=== PATIENT | female | born 1970 | race American Indian/Alaskan Native ===

== ENCOUNTER 2017-06-04 19:37 | Emergency (ER) | payer SELFPAY ==
[2017-06-04] MEDS ORDERED: ZOFRAN ODT PO ONE (20:06)
[2017-06-04] MEDS ORDERED: PERCOCET 5/325 PO ONE (20:06)
--- NOTE | 2017-06-04 20:07 | Emergency Department Report ---
Chief Complaint: Abdominal Pain Stated Complaint: ABDOMINAL PAIN,HEADACHE - HPI History of Present Illness: This Is a healthy 46-year-old female presents with left lower quadrant pain for 2 months. She also has had dark vaginal discharge. - Exam Vital Signs: Vital Signs 06/04/17 19:49 Temperature 98.7 F Pulse Rate 100 H Respiratory 18 Rate Blood Pressure 138/84 [Left] O2 Sat by Pulse 98 Oximetry MSE screening note: Focused history and physical exam performed. Due to findings the following was ordered: ED Disposition for MSE Condition: Stable Instructions: Abdominal Pain (ED)
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
[2017-06-04 20:21] LABS: Basophils % (Auto) 0.7 % (0.0-1.8); Eosinophils % (Auto) 0.2 % (0.0-4.3); Hemoglobin 7.4 gm/dl (10.1-14.3); Lymphocytes # (Auto) 0.6 K/mm3 (1.2-5.4); Lymphocytes % (Auto) 9.8 % (13.4-35.0); Mean Corpuscular HGB Conc 29 % (30-34); Monocytes # (Auto) 0.8 K/mm3 (0.0-0.8); Monocytes % (Auto) 12.1 % (0.0-7.3); Platelet Count 150 K/mm3 (140-440); Red Blood Count 3.82 M/mm3 (3.65-5.03)
[2017-06-04 20:23] LABS: Mean Corpuscular Hemoglobin 19 pg (28-32); Mean Corpuscular Volume 65 fl (79-97); Red Cell Distribution Width 24.1 % (13.2-15.2)
[2017-06-04 20:41] LABS: BUN/Creatinine Ratio 8; Blood Urea Nitrogen 5 mg/dL (7-17); Calcium 8.4 mg/dL (8.4-10.2); Hemolysis Index 2
--- NOTE | 2017-06-04 21:39 | Cat Scan Report ---
FINAL REPORT PROCEDURE: CT ABDOMEN PELVIS WO CON TECHNIQUE: Computerized axial tomography of the abdomen and pelvis was performed without intravenous contrast. This study is performed without intravascular contrast material and its sensitivity for abdominal and pelvic pathology, including neoplasms, inflammation, abscess, free fluid, thrombosis, arterial dissection and infarction, is reduced compared with a contrast enhanced study. HISTORY: LLQ pain COMPARISON: No prior studies are available for comparison. FINDINGS: Lower Lung leung: No focal abnormality seen. Upper Abdomen: There is a 1.1 centimeter low-density nodule anteriorly in the left lobe of the liver which appears represent a small hepatic cyst. The liver is otherwise unremarkable. Gallbladder is also unremarkable. The adrenal glands, the unenhanced images of the pancreas and spleen show no focal abnormalities exception of a small calcified granuloma within the spleen. Kidneys, Ureters and Urinary bladder: No abnormalities are identified. Retroperitoneum: The abdominal aorta appears normal. No aneurysm is seen. Nonspecific subcentimeter lymph nodes are seen in the retroperitoneum. No pathologically enlarged lymph nodes are identified. Bowel: Moderate amount of stool seen in the right side of the colon and transverse colon. Bowel loops otherwise unremarkable. No evidence of bowel obstruction or free intraperitoneal gas. The appendix is not visualized. Reproductive organs: Uterus is retroverted and appears mildly enlarged measuring 10.9 by 7.0 by 8.5 centimeter. The fundus of the uterus appears nodular. There may be large fibroids present. No abnormal adnexal masses are seen. Small amount of nonspecific fluid is present in the cul-de-sac. Other: No acute bony abnormalities are identified. IMPRESSION: Enlarged uterus. The uterus is retroverted and appears nodular. I suspect there are large fibroids present. Follow-up pelvic ultrasound suggested. Moderate amount of stool seen in the right side of the colon and transverse colon. Bowel loops otherwise are unremarkable. Small hepatic cyst suspected. No other abnormalities are identified..
[2017-06-04 23:50] LABS: Mucus,Urine 1+ /HPF
[2017-06-04 23:51] LABS: Bilirubin,Urine NEG (Negative); Blood,Urine LG (Negative); Color,Urine Yellow (Yellow)
[2017-06-05] MEDS ORDERED: ULTRAM PO ONE (00:28)
[2017-06-05] MEDS ORDERED: TYLENOL ONE ×2 (00:49)
--- NOTE | 2017-06-05 00:58 | Ultrasound Report ---
FINAL REPORT EXAM: US PELVIC COMPLETE HISTORY: CT abnormal. large fibroid. Left lower quadrant pelvic pain and dysfunctional uterine bleeding. TECHNIQUE: Transabdominal and transvaginal sonographic evaluation was performed of the female pelvis with and without color Doppler imaging. PRIORS: CT dated 06/04/2017 at 1554 hours FINDINGS: 5.3 cm long axis left fundal heterogeneous mass is present with internal vascularity, probable fibroid. The remaining uterine echotexture is normal. Minimal, simple appearing free fluid in the cul-de-sac. Survey of the adnexal regions reveal normal flow to the right ovary. The left ovary is not visualized. Several loops of bowel are present in the left adnexa and elongated cystic structure is noted which may represent a dilated fallopian tube. Last menstrual cycle 05/24/2017. Measurements: Uterus: 10.4 x 5.4 x 8.1 Endometrial stripe: Displaced by the uterine mass and not well delineated. Right ovary: 2.1 x 1.7 x 2.0 Left ovary: Not visualized IMPRESSION: 1. Left fundal uterine mass, probable fibroid. Mass results in mass effect on the endometrial stripe which is not well delineated. If continued uterine bleeding and concern for endometrial pathology, consider sonohysterogram or MRI of the pelvis for further evaluation. 2. The left ovary is not visualized. Elongated cystic structure in the left adnexum may represent a dilated fallopian tube. 3. Small volume fluid in the cul-de-sac, likely physiologic.
[2017-06-05] MEDS ORDERED: TYLENOL PO ONE (01:03)
[2017-06-05 01:30] VITALS: BP 113/65
== END 2017-06-05 01:29 | disposition home or self-care (01) ==
LOC: ED 19:37
DX: D25.9 Leiomyoma of uterus, unspecified (principal); K59.00 Constipation, unspecified; D50.9 Iron deficiency anemia, unspecified
CPT/HCPCS: 36415; 74176; 76830; 76856; 80048; 81001; 84703; 85025; 99284; Q0162